=== PATIENT | male | born 1950 | race Caucasian/White ===

== ENCOUNTER 2017-10-01 09:58 | Outpatient (CLI) | payer MEDICARE, OTHER ==
--- NOTE | 2017-10-01 11:54 | CT ---
CT PULMONARY LUNG SCAN WITHOUT CONTRAST: HISTORY: Discontinued smoking (Z87.891). COMPARISON: None. FINDINGS: Lung screening specific (lung-RADS) is a 1.3 x 0.7 cm possible nodule in the posterior segment of the left upper lobe, abutting the left major pleura, with some thickening of the pleura. This nodule is a part-solid nodule. No other concerning nodule is present. Potentially Significant Incidentals (lung-RADS category S): None Pulmonary Incidentals: There are some essential lobular ground glass nodules in the upper lobe, sugg esting respiratory bronchiolitis. Other Incidentals: There is a calculus within the gallbladder. Moderate coronary artery calcificati ons. There is a midline superficial soft tissue nodule at the level of the manubrium, measuring 2.1 x 2 cm, likely a sebaceous cyst. No thoracic spine compression fracture. IMPRESSION: 1. Lung-RADS category 2 (benign appearance/behavior). There is a ground glass nodule in the left up per lobe, posterior segment, abutting the pleura, measuring less than 20 mm. The recommendation is t o continue annual low dose screening in 12 months. 2. Lung-RADS category S: Negative. No new or potentially significant incidental findings requiring urgent additional evaluation. 3. Other incidental findings as above. POS: TPC
== END 2017-10-01 09:59 | disposition home or self-care (01) ==
LOC: CT 09:58
PROVIDERS: ATTEND Internal Medicine
DX: Z87.891 Personal history of nicotine dependence (principal); R91.1 Solitary pulmonary nodule
CPT/HCPCS: G0297

== ENCOUNTER 2018-08-21 14:33 | Outpatient (CLI) | payer MEDICARE, OTHER ==
--- NOTE | 2018-08-21 18:40 | MRI ---
MRI THORACIC SPINE WITHOUT CONTRAST: 08/21/18 HISTORY: Back pain. M51.34 degenerative disease. COMPARISON: CT 10/01/17. FINDINGS: The cord signal is normal. No cord impingement of the thoracic spine. At the superior end plate of T9 is a hemangioma with a small superior end plate Schmorl's node throug h the hemangioma. This appears similar to the CT examination of 10/01/17. Modic type II end plate changes at T2-T3 with large anterior bridging osteophyte. At T4-T5, there is a right paracentral posterior disc protrusion causing minimal effacement of the ve ntral CSF space with spinal canal measuring approximately 8 mm. No significant neural foraminal narro wing. At T5-T6, there is a very low grade central and bilateral paracentral posterior disc osteophyte compl ex. Same is true at T6-T7. At T7-T8, three is a bridging posterior osteophyte disc osteophyte complex centrally with mild efface ment of the ventral CSF space with the spinal canal measuring 9 mm. Mild hypertrophic facet changes are present at T8-T9, T9-T10, T10-T11, T11-T12 bilaterally causing mi ld bilateral neural foraminal narrowing. The aortic contour is nonaneurysmal. No periaortic adenopathy. Paraspinal musculature is symmetric. IMPRESSION: Mild to moderate spondylosis as described above. POS: HOME
== END 2018-08-21 14:34 | disposition home or self-care (01) ==
LOC: SCSMRI 14:33
PROVIDERS: ATTEND Internal Medicine
DX: M51.34 Other intervertebral disc degeneration, thoracic region (principal); M47.814 Spondylosis without myelopathy or radiculopathy, thoracic region
CPT/HCPCS: 72146

== ENCOUNTER 2019-07-14 10:33 | Outpatient (CLI) | payer MEDICARE, OTHER ==
--- NOTE | 2019-07-14 13:22 | CT ---
CT PULMONARY LUNG SCAN: Date: 07/14/19 HISTORY: Current smoker of 50+ years. Follow-up examination; a ground-glass nodule was noted in the left upper lobe on previous exam. COMPARISON: 10/01/17 study. FINDINGS: The area of ground-glass nodularity abutting the upper portion of the major fissure on the left has a lmost completely resolved on this study. There are some changes of centrilobular emphysema noted. No new pulmonary nodules are identified. Coronary calcifications are seen. Incidental note is made of what appears to be a sebaceous cyst just directly anterior to the sternum. Visualized liver parenchyma is normal. IMPRESSION: 1. Lung-RADS Category 1 - Negative. The ground-glass nodule in the left upper lobe has resolved. 2. Lung-RADS Category S: Coronal calcifications are incidentally noted. POS: TPC
== END 2019-07-14 10:34 | disposition home or self-care (01) ==
LOC: CT 10:33
PROVIDERS: ATTEND Internal Medicine
DX: F17.213 Nicotine dependence, cigarettes, with withdrawal (principal); I25.10 Atherosclerotic heart disease of native coronary artery without angina pectoris
CPT/HCPCS: G0297

== ENCOUNTER 2020-07-22 11:02 | Outpatient (CLI) | payer MEDICARE, OTHER ==
--- NOTE | 2020-07-22 11:46 | CT ---
EXAM: CT chest without contrast PROVIDED CLINICAL HISTORY: Personal history of nicotine dependence, low dose screening COMPARISON: 07/14/2019 FINDINGS: The heart, pericardium and great vessels are suboptimally evaluated in the absence of IV contrast. Va scular calcification including coronary calcium is demonstrated. The airway appears patent and of normal caliber. There is no definite evidence for thoracic lymph node enlargement. 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 This is unchanged with respect to the 2018 study. The lungs are free of significant opacity. No pleural fluid or pneumothorax apparent. The visualized portions of the upper abdomen appear unremarkable. The osseous structures demonstrate no concerning lytic or blastic lesions. Sebaceous cyst involving the presternal subcutaneous adipose layer redemonstrated. IMPRESSION: Lung RADS category 1-negative. Continue annual screening.
== END 2020-07-22 11:03 | disposition home or self-care (01) ==
LOC: BICCT 11:02
PROVIDERS: ATTEND Internal Medicine
DX: Z12.2 Encounter for screening for malignant neoplasm of respiratory organs (principal); F17.210 Nicotine dependence, cigarettes, uncomplicated
CPT/HCPCS: G0297

== ENCOUNTER 2021-08-02 13:58 | Outpatient (CLI) | payer MEDICARE, OTHER | END 2021-08-02 13:59 | disposition home or self-care (01) | LOC: BICCT 13:58 | PROVIDERS: ATTEND Family Medicine | DX: Z12.2 Encounter for screening for malignant neoplasm of respiratory organs (principal); F17.210 Nicotine dependence, cigarettes, uncomplicated | CPT/HCPCS: 71271 ==

== ENCOUNTER 2022-05-09 15:26 | Outpatient (CLI) | payer MEDICARE, OTHER ==
[2022-05-09 16:48] LABS: Hemoglobin 14.9 g/dL (13.5-17.5); Mean Corpuscular HGB CONC 33.1 g/dL (32.0-36.0); Mean Corpuscular Volume 90.5 fl (81.2-95.1); Mean Platelet Volume 12.2 fl (7.4-10.4); Platelet Count 157 10x3/uL (150-450); RBC Distribution Width 13.4 % (11.5-14.5); Red Blood Cell (RBC) Count 4.97 10x6/uL (4.32-5.72); White Blood Cell (WBC) Count 7.4 10x3/uL (3.5-10.5)
[2022-05-09 16:54] LABS: Anion Gap 13 mmol/L (10-20); BUN (Urea Nitrogen) 24 mg/dL (8.4-25.7); Calc. Creatinine Clearance 0 mL/min (70-130); Calcium 9.8 mg/dL (7.8-10.44); Carbon Dioxide 29 mmol/L (23-31); Chloride 105 mmol/L (98-107); Estimated GFR 86; Glucose 139 mg/dL (83-110); Potassium 4.8 mmol/L (3.5-5.1); Sodium 142 mmol/L (136-145)
== END 2022-05-09 15:27 | disposition home or self-care (01) ==
LOC: LABBT 15:26
PROVIDERS: ATTEND Surgery
DX: Z01.818 Encounter for other preprocedural examination (principal); M54.16 Radiculopathy, lumbar region; M71.30 Other bursal cyst, unspecified site
CPT/HCPCS: 80048; 85027; 93005; 93010

== ENCOUNTER 2022-05-12 09:52 | Inpatient (IN) | payer MEDICARE, OTHER ==
[2022-05-10 12:35] VITALS: BMI 38.0
[2022-05-12 11:58] LABS: INR-International Normal Ratio 1.1; PTT 28.8 sec (22.9-36.1); Prothrombin Time 14.4 sec (12.0-14.7)
[2022-05-12] MEDS ORDERED: Neomycin-Polymyxin 1 ML AMP ONE (12:53)
[2022-05-12] MEDS ORDERED: Thrombin 5000 UNITS/5 ML VIAL ONE ×3 (12:53→14:14)
[2022-05-12] MEDS ORDERED: fentaNYL Citrate/PF 100 MCG/2 ML SYRINGE ONE (12:59)
[2022-05-12] MEDS ORDERED: CEFAZOLIN 2 GM VIAL ONE (13:01)
[2022-05-12] MEDS ORDERED: Sodium Chloride 0.9% 100 ML ONE (13:01)
[2022-05-12] MEDS ORDERED: PROPOFOL 200 MG/20 ML VIAL ONE (13:15)
[2022-05-12] MEDS ORDERED: Glycopyrrolate 0.2 MG/ML 5 ML SYRINGE ONE (13:15)
[2022-05-12] MEDS ORDERED: Ondansetron PF 4 MG/2 ML Vial ONE (13:15)
[2022-05-12] MEDS ORDERED: Rocuronium Bromide 10 MG/ML (10ML VIAL) ONE (13:15)
[2022-05-12] MEDS ORDERED: ePHEDrine 50 MG/ML VIAL ONE (13:15)
[2022-05-12] MEDS ORDERED: NEOSTIGMINE 3 MG/3 ML SYR 3 MG/3 ML SYRINGE ONE (13:15)
[2022-05-12] MEDS ORDERED: Dexamethasone 20 MG/5 ML VIAL ONE (13:15)
[2022-05-12] MEDS ORDERED: Lidocaine 1% MPF 2 ML VIAL ONE (13:15)
[2022-05-12] MEDS ORDERED: Promethazine HCl 25 MG/ML VIAL IVPB PRN (15:08)
[2022-05-12] MEDS ORDERED: Ondansetron HCl/PF 4 MG/2 ML Vial IVP PRN (15:08)
[2022-05-12] MEDS ORDERED: Promethazine HCl 25 MG/ML VIAL IM PRN (15:08)
[2022-05-12] MEDS ORDERED: Fentanyl 100 MCG/2 ML VIAL ONE (15:12)
[2022-05-12] MEDS ORDERED: Ondansetron PF 4 MG/2 ML Vial IVP PRN (15:13)
[2022-05-12] MEDS ORDERED: diphenhydrAMINE 25 MG CAP PO PRN (15:13)
[2022-05-12] MEDS ORDERED: Acetaminophen 325 MG TAB PO PRN (15:13)
[2022-05-12] MEDS ORDERED: Acetaminophen/Codeine 30-300mg Tablet PO PRN (15:13)
[2022-05-12] MEDS ORDERED: traMADol HCl 50 MG TAB PO PRN (15:13)
[2022-05-12] MEDS ORDERED: hydrALAZINE 20 MG/ML VIAL SLOW IVP PRN (15:16)
[2022-05-12] MEDS: Morphine 2 MG/ML VIAL SLOW IVP PRN ×2 (16:50→21:52)
[2022-05-12] MEDS: Sodium Chloride 0.9% 1,000 ML IV SCH (16:54)
[2022-05-12] MEDS: HYDROcodone/Acetaminophen 7.5/325 mg Tablet PO PRN (20:55)
[2022-05-12] MEDS: Carvedilol 6.25 MG TAB PO SCH (20:55)
[2022-05-12] MEDS: CEFAZOLIN 2 GM in Sodium Chloride 0.9% 100 ML IVPB SCH (20:59)
[2022-05-12] MEDS: tiZANidine HCl 4 MG TAB PO PRN (21:54)
[2022-05-13] MEDS: HYDROcodone/Acetaminophen 7.5/325 mg Tablet PO PRN ×3 (03:34→15:34)
[2022-05-13] MEDS: Sodium Chloride 0.9% 1,000 ML IV SCH ×2 (04:38→22:40)
[2022-05-13] MEDS ORDERED: Latanoprost 0.005% Ophth Soln 2.5 ml Bottle EA EYE SCH ×2 (09:00→21:00)
[2022-05-13] MEDS ORDERED: Amlodipine 5 mg/Benazepril 20 mg CAP PO SCH ×2 (09:00→21:00)
[2022-05-13] MEDS ORDERED: Atorvastatin Calcium 20 MG TAB PO SCH ×2 (09:00→21:00)
[2022-05-13] MEDS ORDERED: Doxazosin Mesylate 4 MG TAB PO SCH ×2 (09:00→21:00)
[2022-05-13] MEDS ORDERED: GLUCOSAMINE SULFATE 1000 MG PO SCH ×2 (09:00→21:00)
[2022-05-13] MEDS: Triamterene/Hydrochlorothiazide 37.5 mg/25 mg Tablet PO SCH (09:02)
[2022-05-13] MEDS: Carvedilol 6.25 MG TAB PO SCH ×2 (09:02→21:02)
[2022-05-13] MEDS: CEFAZOLIN 2 GM in Sodium Chloride 0.9% 100 ML IVPB SCH (15:34)
[2022-05-13] MEDS: tiZANidine HCl 4 MG TAB PO PRN (21:01)
[2022-05-13] MEDS: Morphine 2 MG/ML VIAL SLOW IVP PRN (21:11)
[2022-05-14] MEDS: HYDROcodone/Acetaminophen 7.5/325 mg Tablet PO PRN ×2 (01:26→13:24)
[2022-05-14 07:58] VITALS: TEMP 98.1
[2022-05-14] MEDS ORDERED: Dexamethasone 10 MG/ML VIAL SLOW IVP SCH (08:30)
[2022-05-14] MEDS ORDERED: Ketorolac Tromethamine 30 MG/ML VIAL IVP SCH (08:45)
[2022-05-14] MEDS: Sodium Chloride 0.9% 1,000 ML IV SCH (08:50)
[2022-05-14] MEDS: Carvedilol 6.25 MG TAB PO SCH (09:06)
[2022-05-14] MEDS: Triamterene/Hydrochlorothiazide 37.5 mg/25 mg Tablet PO SCH (09:06)
[2022-05-14 11:33] VITALS: BP 148/81
[2022-05-14] MEDS ORDERED: Dexamethasone 4 MG TAB PO SCH (12:00)
== END 2022-05-14 14:30 | disposition home or self-care (01) | DRG 517 ==
LOC: SDC 09:52 → SURG A 16:25 → OBSVTOIN 05-13 13:21
PROVIDERS: ADMIT Surgery; ATTEND Surgery
PROC: 01NB0ZZ Release Lumbar Nerve, Open Approach (ICD-10-PCS; principal; 2022-05-12)
DX: M48.062 Spinal stenosis, lumbar region with neurogenic claudication (principal); M54.16 Radiculopathy, lumbar region; M71.38 Other bursal cyst, other site; I25.10 Atherosclerotic heart disease of native coronary artery without angina pectoris; I10 Essential (primary) hypertension; E78.2 Mixed hyperlipidemia; Z28.21 Immunization not carried out because of patient refusal; Z98.890 Other specified postprocedural states; Z80.42 Family history of malignant neoplasm of prostate; Z80.3 Family history of malignant neoplasm of breast; Z79.899 Other long term (current) drug therapy; Z79.82 Long term (current) use of aspirin
CPT/HCPCS: 36415; 76000; 85610; 85730; 96365; 96375; 96376; C1776; G0378; J0690; J1100; J1885; J2270; J2405; J2704; J3010; J3370; J3490; J7050; J8540

== ENCOUNTER 2022-07-20 07:08 | Inpatient (IN) | payer MEDICARE, OTHER ==
[2022-07-20 08:18] LABS: #Basophils 0.1 thou/uL (0.0-0.2); #Eosinphils 0.4 thou/uL (0.0-0.7); #Lymphocytes 2.1 thou/uL (1.20-3.40); #Monocytes 0.7 thou/uL (0.11-0.59); %Basophils 0.7 % (0.0-1.0); %Eosinophils 5.4 % (0.0-10.0); %Lymphocytes 28.9 % (21.0-51.0); %Monocytes 9.3 % (0.0-10.0); %Neutrophils 55.6 % (42.0-75.0); Hemoglobin 14.6 g/dL (14.0-18.0); Mean Corpuscular HGB CONC 32.4 g/dL (32.0-36.0); Mean Corpuscular Hemoglobin 30.7 pg (27.0-31.0); Mean Corpuscular Volume 94.8 fl (78.0-98.0); Mean Platelet Volume 9.1 fL (7.4-10.4); Platelet Count 161 10x3/uL (130-400); RBC Distribution Width 12.8 % (11.5-14.5); Red Blood Cell (RBC) Count 4.77 mill/uL (4.70-6.10); White Blood Cell (WBC) Count 7.2 10x3/uL (4.8-10.8)
[2022-07-20 08:40] LABS: ALT (SGPT) 22 U/L (8-55); AST (SGOT) 14 U/L (5-34); Albumin 3.8 g/dL (3.4-4.8); Alkaline Phosphatase 83 U/L (40-110); Anion Gap 13 mmol/L (10-20); BUN (Urea Nitrogen) 19 mg/dL (8.4-25.7); Bilirubin, Total 0.9 mg/dL (0.2-1.2); CK (CPK) 109 U/L (30-200); CRP (Inflammatory) Less than 0.50 mg/dL (= or < 0.5); Calc. Creatinine Clearance 0 mL/min (70-130); Calcium 9.4 mg/dL (7.8-10.44); Carbon Dioxide 27 mmol/L (23-31); Chloride 104 mmol/L (98-107); Estimated GFR 94; Globulin 2.9 g/dL (2.4-3.5); Glucose 113 mg/dL (83-110); Potassium 3.2 mmol/L (3.5-5.1); Protein, Total 6.7 g/dL (5.8-8.1); Sodium 141 mmol/L (136-145)
[2022-07-20] MEDS ORDERED: Potassium Chloride 20 MEQ TAB PO SCH (11:00)
[2022-07-20] MEDS ORDERED: Iopamidol 370 76% 50 ML VIAL FS ONE (11:17)
[2022-07-20] MEDS ORDERED: FLU VACC QS2022-23(65YR UP)/PF 240 MCG/0.7 ML SYRINGE IM ONE (11:45)
[2022-07-20] MEDS ORDERED: Heparin 10,000 UNITS/ 10 ML VIAL ONE (13:07)
[2022-07-20] MEDS ORDERED: Lidocaine 1% (PF) 30 ML VIAL ONE (13:08)
[2022-07-20] MEDS ORDERED: HYDROcodone/Acetaminophen 7.5/325 mg Tablet PO PRN (19:01)
[2022-07-20] MEDS ORDERED: Acetaminophen/Codeine 30-300mg Tablet PO PRN (19:01)
[2022-07-20] MEDS ORDERED: diphenhydrAMINE 25 MG CAP PO PRN (19:01)
[2022-07-20] MEDS ORDERED: Ondansetron PF 4 MG/2 ML Vial IVP PRN (19:01)
[2022-07-20] MEDS ORDERED: Acetaminophen 325 MG TAB PO PRN (19:01)
[2022-07-20] MEDS ORDERED: traMADol HCl 50 MG TAB PO PRN (19:01)
[2022-07-20] MEDS ORDERED: Polyethylene Glycol 3350 17 GM Packet PO PRN (19:03)
[2022-07-20] MEDS ORDERED: tiZANidine HCl 4 MG TAB PO PRN (19:03)
[2022-07-20] MEDS ORDERED: Bisacodyl 5 MG TAB PO PRN (19:03)
[2022-07-20] MEDS ORDERED: Morphine 4 MG/ML VIAL SLOW IVP PRN (19:34)
[2022-07-20] MEDS: Docusate 100 MG CAP PO SCH (20:55)
[2022-07-20] MEDS: Doxazosin Mesylate 4 MG TAB PO SCH (20:55)
[2022-07-20] MEDS: Atorvastatin Calcium 10 MG TAB PO SCH (20:56)
[2022-07-20] MEDS: Carvedilol 6.25 MG TAB PO SCH (20:56)
[2022-07-20] MEDS: Latanoprost 0.005% Ophth Soln 2.5 ml Bottle EA EYE SCH (20:56)
[2022-07-20] MEDS ORDERED: GLUCOSAMINE SULFATE 1000 MG PO SCH (21:00)
[2022-07-20] MEDS ORDERED: Fish Oil 1,000 MG CAP PO SCH (21:00)
[2022-07-21 06:27] LABS: #Eosinphils 0.3 thou/uL (0.0-0.7); #Lymphocytes 2.2 thou/uL (1.20-3.40); #Monocytes 0.8 thou/uL (0.11-0.59); #Neutrophils 5.1 thou/uL (1.40-6.50); %Basophils 0.3 % (0.0-1.0); %Eosinophils 3.4 % (0.0-10.0); %Lymphocytes 25.9 % (21.0-51.0); %Monocytes 9.2 % (0.0-10.0); %Neutrophils 61.2 % (42.0-75.0); Hemoglobin 14.3 g/dL (14.0-18.0); Mean Corpuscular HGB CONC 32.7 g/dL (32.0-36.0); Mean Corpuscular Hemoglobin 30.7 pg (27.0-31.0); Mean Corpuscular Volume 93.9 fl (78.0-98.0); Platelet Count 158 10x3/uL (130-400); RBC Distribution Width 12.6 % (11.5-14.5); Red Blood Cell (RBC) Count 4.67 mill/uL (4.70-6.10); White Blood Cell (WBC) Count 8.4 10x3/uL (4.8-10.8)
[2022-07-21 06:33] LABS: INR-International Normal Ratio 1.1; Prothrombin Time 14.8 sec (12.0-14.7)
[2022-07-21 06:50] LABS: Anion Gap 11 mmol/L (10-20); BUN (Urea Nitrogen) 17 mg/dL (8.4-25.7); Calc. Creatinine Clearance 144 mL/min (70-130); Calcium 9.2 mg/dL (7.8-10.44); Carbon Dioxide 25 mmol/L (23-31); Chloride 106 mmol/L (98-107); Estimated GFR 94; Glucose 103 mg/dL (83-110); Potassium 3.7 mmol/L (3.5-5.1); Sodium 138 mmol/L (136-145)
[2022-07-21] MEDS: Amlodipine 5 MG TAB PO SCH (07:45)
[2022-07-21] MEDS: Triamterene/Hydrochlorothiazide 37.5 mg/25 mg Tablet PO SCH (07:45)
[2022-07-21] MEDS: Lisinopril 20 MG TAB PO SCH (07:46)
[2022-07-21] MEDS: Carvedilol 6.25 MG TAB PO SCH ×2 (07:46→20:53)
[2022-07-21] MEDS: Loratadine 10 MG TAB PO SCH (07:48)
[2022-07-21] MEDS: Docusate 100 MG CAP PO SCH ×2 (07:49→20:52)
[2022-07-21] MEDS ORDERED: Apixaban 5 MG TAB PO SCH (09:00)
[2022-07-21] MEDS ORDERED: hydrALAZINE 20 MG/ML VIAL SLOW IVP PRN (10:41)
[2022-07-21] MEDS ORDERED: Thrombin 5000 UNITS/5 ML VIAL ONE (10:44)
[2022-07-21] MEDS ORDERED: CEFAZOLIN 2 GM in Sodium Chloride 0.9% 100 ML IVPB SCH (10:45)
[2022-07-21] MEDS ORDERED: CEFAZOLIN 2 GM VIAL ONE (10:47)
[2022-07-21] MEDS ORDERED: Sodium Chloride 0.9% 100 ML ONE (10:47)
[2022-07-21] MEDS ORDERED: fentaNYL PF 100 MCG/2 ML SYRINGE ONE ×2 (10:52→12:57)
[2022-07-21] MEDS ORDERED: SUGAMMADEX SODIUM 200 MG/2 ML VIAL ONE (10:52)
[2022-07-21] MEDS ORDERED: Ketorolac Tromethamine 30 MG/ML VIAL ONE (10:57)
[2022-07-21] MEDS ORDERED: PROPOFOL 200 MG/20 ML VIAL ONE (10:57)
[2022-07-21] MEDS ORDERED: Rocuronium Bromide 10 MG/ML (10ML VIAL) ONE (10:57)
[2022-07-21] MEDS ORDERED: Dexamethasone 20 MG/5 ML VIAL ONE (10:57)
[2022-07-21] MEDS ORDERED: NEOSTIGMINE 3 MG/3 ML SYR 3 MG/3 ML SYRINGE ONE (10:57)
[2022-07-21] MEDS ORDERED: ePHEDrine 50 MG/ML VIAL ONE (10:57)
[2022-07-21] MEDS ORDERED: Glycopyrrolate 0.2 MG/ML 5 ML SYRINGE ONE (10:57)
[2022-07-21] MEDS ORDERED: Ondansetron PF 4 MG/2 ML Vial ONE (10:57)
[2022-07-21] MEDS ORDERED: Dexamethasone 4 mg/ml Vial ONE (11:54)
[2022-07-21] MEDS ORDERED: Morphine Sulfate 2 MG/ML SYRINGE SLOW IVP PRN (12:45)
[2022-07-21] MEDS ORDERED: PACU-Morphine 4MG/ML VIAL SLOW IVP PRN (12:45)
[2022-07-21] MEDS ORDERED: Promethazine HCl 25 MG/ML VIAL IM PRN (12:45)
[2022-07-21] MEDS ORDERED: HYDROmorphone 2 MG/ML VIAL SLOW IVP PRN (12:45)
[2022-07-21] MEDS ORDERED: Promethazine HCl 25 MG/ML VIAL IVPB PRN (12:45)
[2022-07-21] MEDS ORDERED: FENTANYL 50 MCG/ML 1 ML VIAL SLOW IVP PRN (12:45)
[2022-07-21] MEDS ORDERED: Ondansetron HCl/PF 4 MG/2 ML Vial IVP PRN (12:45)
[2022-07-21] MEDS: CEFAZOLIN 2 GM in Sodium Chloride 0.9% 100 ML IVPB SCH (18:53)
[2022-07-21] MEDS: Atorvastatin Calcium 10 MG TAB PO SCH (20:53)
[2022-07-21] MEDS: Doxazosin Mesylate 4 MG TAB PO SCH (20:54)
[2022-07-21] MEDS: Latanoprost 0.005% Ophth Soln 2.5 ml Bottle EA EYE SCH (21:55)
[2022-07-22] MEDS: CEFAZOLIN 2 GM in Sodium Chloride 0.9% 100 ML IVPB SCH ×3 (02:14→17:52)
[2022-07-22 04:27] LABS: #Monocytes 0.3 thou/uL (0.11-0.59); #Neutrophils 8.4 thou/uL (1.40-6.50); %Eosinophils 0.1 % (0.0-10.0); %Lymphocytes 10.4 % (21.0-51.0); %Monocytes 3.1 % (0.0-10.0); %Neutrophils 86.4 % (42.0-75.0); Hemoglobin 15.7 g/dL (14.0-18.0); Mean Corpuscular HGB CONC 32.2 g/dL (32.0-36.0); Mean Corpuscular Hemoglobin 30.1 pg (27.0-31.0); Mean Corpuscular Volume 93.5 fl (78.0-98.0); Mean Platelet Volume 9.4 fL (7.4-10.4); Platelet Count 166 10x3/uL (130-400); RBC Distribution Width 12.4 % (11.5-14.5); Red Blood Cell (RBC) Count 5.23 mill/uL (4.70-6.10); White Blood Cell (WBC) Count 9.8 10x3/uL (4.8-10.8)
[2022-07-22 04:30] LABS: Anion Gap 12 mmol/L (10-20); BUN (Urea Nitrogen) 19 mg/dL (8.4-25.7); Calc. Creatinine Clearance 140 mL/min (70-130); Calcium 9.3 mg/dL (7.8-10.44); Carbon Dioxide 26 mmol/L (23-31); Chloride 101 mmol/L (98-107); Estimated GFR 94; Glucose 169 mg/dL (83-110); Potassium 3.6 mmol/L (3.5-5.1); Sodium 135 mmol/L (136-145)
[2022-07-22] MEDS: Bisacodyl 5 MG TAB PO SCH (08:14)
[2022-07-22] MEDS: Docusate 100 MG CAP PO SCH ×2 (08:14→21:03)
[2022-07-22] MEDS: Carvedilol 6.25 MG TAB PO SCH ×2 (08:15→21:00)
[2022-07-22] MEDS: Loratadine 10 MG TAB PO SCH (08:15)
[2022-07-22] MEDS: Amlodipine 5 MG TAB PO SCH (08:16)
[2022-07-22] MEDS: Lisinopril 20 MG TAB PO SCH (08:16)
[2022-07-22] MEDS: Triamterene/Hydrochlorothiazide 37.5 mg/25 mg Tablet PO SCH (10:01)
[2022-07-22] MEDS: Atorvastatin Calcium 10 MG TAB PO SCH (21:03)
[2022-07-22] MEDS: Doxazosin Mesylate 4 MG TAB PO SCH (21:03)
[2022-07-22] MEDS: Latanoprost 0.005% Ophth Soln 2.5 ml Bottle EA EYE SCH (21:06)
[2022-07-23] MEDS: CEFAZOLIN 2 GM in Sodium Chloride 0.9% 100 ML IVPB SCH ×3 (01:49→18:19)
[2022-07-23 04:13] LABS: #Eosinphils 0.2 thou/uL (0.0-0.7); #Lymphocytes 2.3 thou/uL (1.20-3.40); #Neutrophils 9.6 thou/uL (1.40-6.50); %Basophils 0.1 % (0.0-1.0); %Eosinophils 1.5 % (0.0-10.0); %Lymphocytes 17.5 % (21.0-51.0); %Monocytes 7.4 % (0.0-10.0); %Neutrophils 73.4 % (42.0-75.0); Hemoglobin 14.2 g/dL (14.0-18.0); Mean Corpuscular HGB CONC 32.8 g/dL (32.0-36.0); Mean Corpuscular Volume 94.5 fl (78.0-98.0); Mean Platelet Volume 9.3 fL (7.4-10.4); Platelet Count 161 10x3/uL (130-400); RBC Distribution Width 12.6 % (11.5-14.5); Red Blood Cell (RBC) Count 4.57 mill/uL (4.70-6.10)
[2022-07-23 04:36] LABS: Anion Gap 13 mmol/L (10-20); BUN (Urea Nitrogen) 26 mg/dL (8.4-25.7); Calc. Creatinine Clearance 125 mL/min (70-130); Calcium 8.9 mg/dL (7.8-10.44); Carbon Dioxide 26 mmol/L (23-31); Chloride 102 mmol/L (98-107); Estimated GFR 90; Glucose 123 mg/dL (83-110); Potassium 3.5 mmol/L (3.5-5.1); Sodium 137 mmol/L (136-145)
[2022-07-23] MEDS: Carvedilol 6.25 MG TAB PO SCH ×2 (09:29→20:49)
[2022-07-23] MEDS: Docusate 100 MG CAP PO SCH ×2 (09:29→20:49)
[2022-07-23] MEDS: Amlodipine 5 MG TAB PO SCH (09:29)
[2022-07-23] MEDS: Bisacodyl 5 MG TAB PO SCH (09:29)
[2022-07-23] MEDS: Lisinopril 20 MG TAB PO SCH (09:30)
[2022-07-23] MEDS: Loratadine 10 MG TAB PO SCH (09:30)
[2022-07-23] MEDS: Triamterene/Hydrochlorothiazide 37.5 mg/25 mg Tablet PO SCH (10:28)
[2022-07-23] MEDS: Doxazosin Mesylate 4 MG TAB PO SCH (20:49)
[2022-07-23] MEDS: Atorvastatin Calcium 10 MG TAB PO SCH (20:49)
[2022-07-23] MEDS: Latanoprost 0.005% Ophth Soln 2.5 ml Bottle EA EYE SCH (20:50)
[2022-07-24] MEDS: CEFAZOLIN 2 GM in Sodium Chloride 0.9% 100 ML IVPB SCH ×3 (01:06→17:50)
[2022-07-24 04:20] LABS: #Eosinphils 0.5 thou/uL (0.0-0.7); #Lymphocytes 2.7 thou/uL (1.20-3.40); #Monocytes 1.2 thou/uL (0.11-0.59); #Neutrophils 5.5 thou/uL (1.40-6.50); %Basophils 0.2 % (0.0-1.0); %Eosinophils 5.5 % (0.0-10.0); %Lymphocytes 27.4 % (21.0-51.0); %Monocytes 11.7 % (0.0-10.0); %Neutrophils 55.2 % (42.0-75.0); Hemoglobin 13.7 g/dL (14.0-18.0); Mean Corpuscular HGB CONC 32.4 g/dL (32.0-36.0); Mean Corpuscular Hemoglobin 30.5 pg (27.0-31.0); Mean Platelet Volume 9.4 fL (7.4-10.4); Platelet Count 166 10x3/uL (130-400); RBC Distribution Width 12.7 % (11.5-14.5); White Blood Cell (WBC) Count 9.9 10x3/uL (4.8-10.8)
[2022-07-24 04:40] LABS: Anion Gap 11 mmol/L (10-20); BUN (Urea Nitrogen) 20 mg/dL (8.4-25.7); Calc. Creatinine Clearance 134 mL/min (70-130); Calcium 8.9 mg/dL (7.8-10.44); Carbon Dioxide 27 mmol/L (23-31); Chloride 104 mmol/L (98-107); Estimated GFR 92; Glucose 98 mg/dL (83-110); Potassium 3.8 mmol/L (3.5-5.1); Sodium 138 mmol/L (136-145)
[2022-07-24] MEDS: Bisacodyl 5 MG TAB PO SCH (09:14)
[2022-07-24] MEDS: Amlodipine 5 MG TAB PO SCH (09:15)
[2022-07-24] MEDS: Docusate 100 MG CAP PO SCH ×2 (09:15→21:39)
[2022-07-24] MEDS: Loratadine 10 MG TAB PO SCH (09:15)
[2022-07-24] MEDS: Lisinopril 20 MG TAB PO SCH (09:15)
[2022-07-24] MEDS: Carvedilol 6.25 MG TAB PO SCH ×2 (09:15→21:39)
[2022-07-24] MEDS: Metamucil PACK PO SCH (09:16)
[2022-07-24] MEDS: Triamterene/Hydrochlorothiazide 37.5 mg/25 mg Tablet PO SCH (09:19)
[2022-07-24 18:25] VITALS: BMI 38.5
[2022-07-24] MEDS: Atorvastatin Calcium 10 MG TAB PO SCH (21:39)
[2022-07-24] MEDS: Doxazosin Mesylate 4 MG TAB PO SCH (21:39)
[2022-07-24 21:40] VITALS: BP 154/86
[2022-07-24] MEDS: Latanoprost 0.005% Ophth Soln 2.5 ml Bottle EA EYE SCH (21:40)
[2022-07-25] MEDS: CEFAZOLIN 2 GM in Sodium Chloride 0.9% 100 ML IVPB SCH ×2 (01:55→09:10)
[2022-07-25] MEDS ORDERED: Lidocaine 1% w/Epinephrine 1:100K 20 ML VIAL IJ SCH (06:15)
[2022-07-25 06:43] LABS: #Eosinphils 0.5 thou/uL (0.0-0.7); #Lymphocytes 2.6 thou/uL (1.20-3.40); #Neutrophils 4.7 thou/uL (1.40-6.50); %Basophils 0.4 % (0.0-1.0); %Eosinophils 5.5 % (0.0-10.0); %Lymphocytes 29.7 % (21.0-51.0); %Monocytes 11.1 % (0.0-10.0); %Neutrophils 53.3 % (42.0-75.0); Mean Corpuscular HGB CONC 32.5 g/dL (32.0-36.0); Mean Corpuscular Hemoglobin 31.2 pg (27.0-31.0); Mean Platelet Volume 9.3 fL (7.4-10.4); Platelet Count 166 10x3/uL (130-400); RBC Distribution Width 12.8 % (11.5-14.5); White Blood Cell (WBC) Count 8.8 10x3/uL (4.8-10.8)
[2022-07-25 06:59] LABS: Anion Gap 9 mmol/L (10-20); BUN (Urea Nitrogen) 21 mg/dL (8.4-25.7); Calc. Creatinine Clearance 142 mL/min (70-130); Calcium 9.2 mg/dL (7.8-10.44); Carbon Dioxide 29 mmol/L (23-31); Chloride 102 mmol/L (98-107); Estimated GFR 94; Glucose 100 mg/dL (83-110); Potassium 3.4 mmol/L (3.5-5.1); Sodium 137 mmol/L (136-145)
[2022-07-25] MEDS: Bisacodyl 5 MG TAB PO SCH (09:10)
[2022-07-25] MEDS: Docusate 100 MG CAP PO SCH (09:10)
[2022-07-25] MEDS: Loratadine 10 MG TAB PO SCH (09:12)
[2022-07-25] MEDS: Metamucil PACK PO SCH (09:12)
[2022-07-25] MEDS: Carvedilol 6.25 MG TAB PO SCH (10:32)
[2022-07-25] MEDS: Amlodipine 5 MG TAB PO SCH (10:33)
[2022-07-25] MEDS: Lisinopril 20 MG TAB PO SCH (10:33)
[2022-07-25] MEDS: Triamterene/Hydrochlorothiazide 37.5 mg/25 mg Tablet PO SCH (10:33)
[2022-07-25 12:29] VITALS: TEMP 98.3
== END 2022-07-25 15:30 | disposition home or self-care (01) | DRG 29 ==
LOC: ERS 07:08 → T4-B 11:08 → OBSVTOIN 07-21 10:28 → CCU 07-21 11:42
PROVIDERS: ADMIT Family Medicine; ATTEND Family Medicine
PROC: 06H03DZ Insertion of Intraluminal Device into Inferior Vena Cava, Percutaneous Approach (ICD-10-PCS; 2022-07-20)
PROC: B5191ZZ Fluoroscopy of Inferior Vena Cava using Low Osmolar Contrast (ICD-10-PCS; 2022-07-20)
PROC: 00UT0KZ Supplement Spinal Meninges with Nonautologous Tissue Substitute, Open Approach (ICD-10-PCS; principal; 2022-07-21)
PROC: 009U00Z Drainage of Spinal Canal with Drainage Device, Open Approach (ICD-10-PCS; 2022-07-21)
DX: G97.82 Other postprocedural complications and disorders of nervous system (principal); Z20.822 Contact with and (suspected) exposure to COVID-19; G96.09 Other spinal cerebrospinal fluid leak; I82.411 Acute embolism and thrombosis of right femoral vein; G96.198 Other disorders of meninges, not elsewhere classified; Y83.8 Other surgical procedures as the cause of abnormal reaction of the patient, or of later complication, without mention of misadventure at the time of the procedure; E78.5 Hyperlipidemia, unspecified; I10 Essential (primary) hypertension; K21.9 Gastro-esophageal reflux disease without esophagitis; H40.9 Unspecified glaucoma; H35.30 Unspecified macular degeneration; E87.6 Hypokalemia; Z98.52 Vasectomy status; Z98.49 Cataract extraction status, unspecified eye; Z98.890 Other specified postprocedural states; Z87.891 Personal history of nicotine dependence
CPT/HCPCS: 36415; 37191; 72148; 80048; 80053; 82550; 85025; 85610; 85652; 85730; 86140; 93970; C1769; C1776; C1880; G0378; J0360; J1100; J1644; J1885; J2001; J2405; J2704; J3370; J3490; Q9967; U0003; U0005

== ENCOUNTER 2022-08-29 05:36 | Day surgery (SDC) | payer MEDICARE, OTHER ==
[2022-08-24 13:52] VITALS: BMI 36.6
[2022-08-29] MEDS ORDERED: Lidocaine 1% PF 5 ML VIAL ONE ×2 (06:33→06:34)
[2022-08-29] MEDS ORDERED: Iopamidol 370 76% 50 ML VIAL FS ONE (12:43)
== END 2022-08-29 09:45 | disposition home or self-care (01) ==
LOC: SDC 05:36
PROVIDERS: ATTEND Thoracic Surgery (Cardiothoracic Vascular Surgery)
PROC: 06PY3DZ Removal of Intraluminal Device from Lower Vein, Percutaneous Approach (ICD-10-PCS; principal; 2022-08-29)
DX: Z45.89 Encounter for adjustment and management of other implanted devices (principal); K21.9 Gastro-esophageal reflux disease without esophagitis; I10 Essential (primary) hypertension; E78.5 Hyperlipidemia, unspecified; E66.9 Obesity, unspecified; Z68.36 Body mass index [BMI] 36.0-36.9, adult; Z86.718 Personal history of other venous thrombosis and embolism; Z79.01 Long term (current) use of anticoagulants; Z79.899 Other long term (current) drug therapy
CPT/HCPCS: C1758; C1769 ×2; C1894; 37193

== ENCOUNTER 2022-11-16 08:22 | Outpatient (CLI) | payer MEDICARE, OTHER | END 2022-11-16 08:23 | disposition home or self-care (01) | LOC: TBSIIMAG 08:22 | PROVIDERS: ATTEND Surgery | DX: M54.2 Cervicalgia (principal); R51.9 Headache, unspecified; M54.50 Low back pain, unspecified; M79.605 Pain in left leg; J34.1 Cyst and mucocele of nose and nasal sinus | CPT/HCPCS: 70553; 72158 ==

== ENCOUNTER 2022-12-28 09:00 | Inpatient (IN) | payer MEDICARE, OTHER ==
[2023-01-02] MEDS ORDERED: Bupivacaine/Epinephrine 0.25% 30 ML VIAL ONE (06:31)
[2023-01-02] MEDS ORDERED: Vancomycin 500 MG VIAL (PEDI) ONE (06:31)
[2023-01-02] MEDS ORDERED: Fentanyl 250 MCG/5 ML VIAL ONE ×2 (06:56→08:59)
[2023-01-02] MEDS ORDERED: SUGAMMADEX SODIUM 200 MG/2 ML VIAL ONE (06:56)
[2023-01-02] MEDS ORDERED: Lidocaine 1% (PF) 30 ML VIAL ONE (07:18)
[2023-01-02] MEDS ORDERED: EPINEPHrine 1 MG/ML AMP ONE (07:18)
[2023-01-02] MEDS ORDERED: Sodium Chloride 0.9% 100 ML ONE ×2 (07:27→14:47)
[2023-01-02] MEDS ORDERED: CEFAZOLIN 2 GM VIAL ONE ×2 (07:27→14:41)
[2023-01-02] MEDS ORDERED: Phenylephrine 10 MG/ML VIAL ONE (07:33)
[2023-01-02] MEDS ORDERED: Ondansetron PF 4 MG/2 ML Vial ONE (07:39)
[2023-01-02] MEDS ORDERED: Glycopyrrolate 0.2 MG/ML 5 ML SYRINGE ONE (07:39)
[2023-01-02] MEDS ORDERED: PROPOFOL 200 MG/20 ML VIAL ONE (07:39)
[2023-01-02] MEDS ORDERED: Dexamethasone 20 MG/5 ML VIAL ONE (07:39)
[2023-01-02] MEDS ORDERED: Rocuronium Bromide 10 MG/ML (10ML VIAL) ONE (07:39)
[2023-01-02] MEDS ORDERED: NEOSTIGMINE 3 MG/3 ML SYR 3 MG/3 ML SYRINGE ONE (07:39)
[2023-01-02] MEDS ORDERED: Promethazine HCl 25 MG/ML VIAL IVPB PRN (09:20)
[2023-01-02] MEDS ORDERED: Docusate 100 MG CAP PO PRN (09:20)
[2023-01-02] MEDS ORDERED: HYDROmorphone 0.5 MG/0.5 ML SYRINGE ONE (09:24)
[2023-01-02] MEDS ORDERED: Polyethylene Glycol 3350 17 GM Packet PO PRN (09:28)
[2023-01-02] MEDS: Sodium Chloride 0.9% 1,000 ML IV SCH ×2 (09:30→15:32)
[2023-01-02] MEDS ORDERED: hydrALAZINE 20 MG/ML VIAL ONE (09:34)
[2023-01-02] MEDS ORDERED: Promethazine HCl 12.5 MG in Sodium Chloride 0.9% 50 ML IVPB PRN (09:36)
[2023-01-02] MEDS ORDERED: Morphine 4 MG/ML VIAL ONE (10:16)
[2023-01-02] MEDS ORDERED: Morphine 2 MG/ML VIAL ONE (13:49)
[2023-01-02] MEDS: CEFAZOLIN 2 GM in Sodium Chloride 0.9% 100 ML IVPB SCH ×2 (15:01→21:00)
[2023-01-02] MEDS: Acetaminophen/Codeine 30-300mg Tablet PO PRN (15:25)
[2023-01-02 15:37] VITALS: BMI 39.6
[2023-01-02] MEDS: hydrALAZINE 20 MG/ML VIAL SLOW IVP PRN ×4 (16:49→19:52)
[2023-01-02] MEDS: Morphine 2 MG/ML VIAL SLOW IVP PRN (17:04)
[2023-01-02] MEDS: Ondansetron PF 4 MG/2 ML Vial IVP PRN (19:52)
[2023-01-02] MEDS: Doxazosin Mesylate 4 MG TAB PO SCH (19:53)
[2023-01-02] MEDS: HYDROcodone/Acetaminophen 7.5/325 mg Tablet PO PRN (19:53)
[2023-01-02] MEDS: Atorvastatin Calcium 10 MG TAB PO SCH (19:53)
[2023-01-02] MEDS: Carvedilol 25 MG TAB PO SCH (19:54)
[2023-01-02] MEDS: Latanoprost 0.005% Ophth Soln 2.5 ml Bottle EA EYE SCH (20:44)
[2023-01-03] MEDS: HYDROcodone/Acetaminophen 7.5/325 mg Tablet PO PRN ×2 (00:53→08:03)
[2023-01-03] MEDS: Morphine 2 MG/ML VIAL SLOW IVP PRN (03:17)
[2023-01-03] MEDS: Ondansetron PF 4 MG/2 ML Vial IVP PRN ×2 (03:18→14:27)
[2023-01-03] MEDS: hydrALAZINE 20 MG/ML VIAL SLOW IVP PRN (05:41)
[2023-01-03] MEDS: Carvedilol 25 MG TAB PO SCH ×2 (08:01→19:55)
[2023-01-03] MEDS: Loratadine 10 MG TAB PO SCH (08:02)
[2023-01-03] MEDS: Lisinopril 20 MG TAB PO SCH (08:02)
[2023-01-03 08:29] LABS: #Basophils 0.1 thou/uL (0.0-0.2); #Lymphocytes 0.5 thou/uL (1.20-3.40); #Monocytes 0.4 thou/uL (0.11-0.59); #Neutrophils 9.3 thou/uL (1.40-6.50); %Basophils 0.3 % (0.0-1.0); %Eosinophils 0.3 % (0.0-10.0); %Lymphocytes 7.5 % (21.0-51.0); %Monocytes 6.5 % (0.0-10.0); %Neutrophils 85.4 % (42.0-75.0); Hemoglobin 15.4 g/dL (14.0-18.0); MDiff Complete? YES; Mean Corpuscular HGB CONC 32.9 g/dL (32.0-36.0); Mean Corpuscular Hemoglobin 30.7 pg (27.0-31.0); Mean Corpuscular Volume 93.1 fl (78.0-98.0); Mean Platelet Volume 12.1 fL (7.4-10.4); Platelet Count 47 10x3/uL (130-400); RBC Distribution Width 11.8 % (11.5-14.5); Red Blood Cell (RBC) Count 5.03 mill/uL (4.70-6.10); White Blood Cell (WBC) Count 10.8 10x3/uL (4.8-10.8)
[2023-01-03 08:30] LABS: Band 3 % (5-11); Lymphocytes 6 % (21-51); Monocytes 9 % (0-10); Neutrophil 82 % (42-75); Platelet Morphology Comment Appears Decreased; Polychromasia SLIGHT = 2-3 cells (100X) (0-2/hpf)
[2023-01-03] MEDS: Triamterene/Hydrochlorothiazide 37.5 mg/25 mg Tablet PO SCH (09:54)
[2023-01-03] MEDS: Scopolamine 1.5 mg/72 hour Patch TD SCH (09:59)
[2023-01-03 12:48] LABS: Anion Gap 14 mmol/L (10-20); BUN (Urea Nitrogen) 20 mg/dL (8.4-25.7); Calc. Creatinine Clearance 139 mL/min (70-130); Carbon Dioxide 23 mmol/L (23-31); Chloride 109 mmol/L (98-107); Estimated GFR 92; Glucose 135 mg/dL (83-110); Potassium 3.1 mmol/L (3.5-5.1); Sodium 143 mmol/L (136-145)
[2023-01-03] MEDS: Sodium Chloride 0.9% 1,000 ML IV SCH ×2 (13:33→19:55)
[2023-01-03] MEDS: Acetaminophen/Codeine 30-300mg Tablet PO PRN (14:25)
[2023-01-03 15:55] LABS: Platelet Count 143 10x3/uL (130-400)
[2023-01-03] MEDS: Acetaminophen 325 MG TAB PO PRN (19:40)
[2023-01-03] MEDS: Atorvastatin Calcium 10 MG TAB PO SCH (19:55)
[2023-01-03] MEDS: Doxazosin Mesylate 4 MG TAB PO SCH (19:55)
[2023-01-03] MEDS: Latanoprost 0.005% Ophth Soln 2.5 ml Bottle EA EYE SCH (21:00)
[2023-01-03] MEDS ORDERED: Sevoflurane 250 ML INH ANEST BOTTLE ONE (22:41)
[2023-01-04] MEDS: hydrALAZINE 20 MG/ML VIAL SLOW IVP PRN ×3 (01:11→19:19)
[2023-01-04 07:31] LABS: #Eosinphils 0.1 thou/uL (0.0-0.7); #Lymphocytes 1.5 thou/uL (1.20-3.40); #Neutrophils 9.9 thou/uL (1.40-6.50); %Basophils 0.3 % (0.0-1.0); %Eosinophils 0.5 % (0.0-10.0); %Lymphocytes 12.3 % (21.0-51.0); %Monocytes 7.7 % (0.0-10.0); %Neutrophils 79.1 % (42.0-75.0); Hemoglobin 13.9 g/dL (14.0-18.0); Mean Corpuscular HGB CONC 33.4 g/dL (32.0-36.0); Mean Corpuscular Hemoglobin 31.5 pg (27.0-31.0); Mean Corpuscular Volume 94.1 fl (78.0-98.0); Mean Platelet Volume 10.4 fL (7.4-10.4); Platelet Count 130 10x3/uL (130-400); RBC Distribution Width 11.8 % (11.5-14.5); Red Blood Cell (RBC) Count 4.42 mill/uL (4.70-6.10); White Blood Cell (WBC) Count 12.5 10x3/uL (4.8-10.8)
[2023-01-04 07:35] LABS: Anion Gap 11 mmol/L (10-20); BUN (Urea Nitrogen) 27 mg/dL (8.4-25.7); Calc. Creatinine Clearance 127 mL/min (70-130); Carbon Dioxide 26 mmol/L (23-31); Chloride 107 mmol/L (98-107); Estimated GFR 88; Glucose 109 mg/dL (83-110); Potassium 3.3 mmol/L (3.5-5.1); Sodium 141 mmol/L (136-145)
[2023-01-04] MEDS: Carvedilol 25 MG TAB PO SCH ×2 (07:35→21:03)
[2023-01-04] MEDS: Acetaminophen/Codeine 30-300mg Tablet PO PRN (07:36)
[2023-01-04] MEDS: Lisinopril 20 MG TAB PO SCH (07:36)
[2023-01-04] MEDS: Triamterene/Hydrochlorothiazide 37.5 mg/25 mg Tablet PO SCH (07:36)
[2023-01-04] MEDS: Loratadine 10 MG TAB PO SCH (07:36)
[2023-01-04] MEDS: Scopolamine 1.5 mg/72 hour Patch TD SCH (10:22)
[2023-01-04] MEDS: Sodium Chloride 0.9% 1,000 ML IV SCH (16:25)
[2023-01-04] MEDS: Labetalol HCl 100 MG/20 ML VIAL SLOW IVP PRN ×2 (17:08→21:04)
[2023-01-04] MEDS: Acetaminophen 325 MG TAB PO PRN (21:01)
[2023-01-04] MEDS: Atorvastatin Calcium 10 MG TAB PO SCH (21:03)
[2023-01-04] MEDS: Doxazosin Mesylate 4 MG TAB PO SCH (21:04)
[2023-01-04] MEDS: Latanoprost 0.005% Ophth Soln 2.5 ml Bottle EA EYE SCH (21:15)
[2023-01-05] MEDS: Sodium Chloride 0.9% 1,000 ML IV SCH (05:46)
[2023-01-05 05:55] LABS: #Eosinphils 0.2 thou/uL (0.0-0.7); #Lymphocytes 1.7 thou/uL (1.20-3.40); #Neutrophils 5.4 thou/uL (1.40-6.50); %Basophils 0.4 % (0.0-1.0); %Eosinophils 2.7 % (0.0-10.0); %Lymphocytes 20.5 % (21.0-51.0); %Monocytes 11.7 % (0.0-10.0); %Neutrophils 64.7 % (42.0-75.0); Hemoglobin 13.5 g/dL (14.0-18.0); Mean Corpuscular HGB CONC 31.2 g/dL (32.0-36.0); Mean Corpuscular Hemoglobin 29.7 pg (27.0-31.0); Mean Corpuscular Volume 95.2 fl (78.0-98.0); Mean Platelet Volume 10.3 fL (7.4-10.4); Platelet Count 141 10x3/uL (130-400); RBC Distribution Width 11.9 % (11.5-14.5); Red Blood Cell (RBC) Count 4.56 mill/uL (4.70-6.10); White Blood Cell (WBC) Count 8.4 10x3/uL (4.8-10.8)
[2023-01-05 06:03] LABS: Anion Gap 13 mmol/L (10-20); BUN (Urea Nitrogen) 19 mg/dL (8.4-25.7); Calc. Creatinine Clearance 152 mL/min (70-130); Calcium 9.2 mg/dL (7.8-10.44); Carbon Dioxide 24 mmol/L (23-31); Chloride 108 mmol/L (98-107); Estimated GFR 95; Glucose 103 mg/dL (83-110); Potassium 3.4 mmol/L (3.5-5.1); Sodium 142 mmol/L (136-145)
[2023-01-05] MEDS: Triamterene/Hydrochlorothiazide 37.5 mg/25 mg Tablet PO SCH (08:46)
[2023-01-05] MEDS: Loratadine 10 MG TAB PO SCH (08:46)
[2023-01-05] MEDS: Lisinopril 20 MG TAB PO SCH (08:46)
[2023-01-05] MEDS: Carvedilol 25 MG TAB PO SCH (08:46)
[2023-01-05] MEDS: Scopolamine 1.5 mg/72 hour Patch TD SCH (08:47)
[2023-01-05] MEDS: Acetaminophen/Codeine 30-300mg Tablet PO PRN (08:49)
[2023-01-05 11:56] VITALS: TEMP 97.6
[2023-01-05 13:35] VITALS: BP 148/78
== END 2023-01-05 14:04 | disposition home or self-care (01) | DRG 33 ==
LOC: SURG A 01-02 05:59 → CCU 01-02 14:58 → SURG B 01-04 10:11
PROVIDERS: ADMIT Surgery; ATTEND Surgery
PROC: 00164J6 Bypass Cerebral Ventricle to Peritoneal Cavity with Synthetic Substitute, Percutaneous Endoscopic Approach (ICD-10-PCS; principal; 2023-01-02)
PROC: 6A550Z2 Pheresis of Platelets, Single (ICD-10-PCS; 2023-01-03)
DX: G91.0 Communicating hydrocephalus (principal); R51.9 Headache, unspecified; K21.9 Gastro-esophageal reflux disease without esophagitis; E78.5 Hyperlipidemia, unspecified; I10 Essential (primary) hypertension; H40.9 Unspecified glaucoma; H35.30 Unspecified macular degeneration; Z86.718 Personal history of other venous thrombosis and embolism; Z98.49 Cataract extraction status, unspecified eye; Z87.891 Personal history of nicotine dependence; Z98.52 Vasectomy status; D69.6 Thrombocytopenia, unspecified
CPT/HCPCS: 36415; 36430; 70450; 80048; 85025; 86850; 86900; 86901; C1713; J0171; J0360; J1100; J1170; J2001; J2270; J2272; J2370; J2405; J2550; J2704; J3010; J3371; J3490; J7050; P9035

== ENCOUNTER 2022-12-28 09:01 | Outpatient (CLI) | payer MEDICARE, OTHER ==
[2022-12-28 10:03] LABS: Hemoglobin 14.6 g/dL (13.5-17.5); Mean Corpuscular HGB CONC 32.2 g/dL (32.0-36.0); Mean Corpuscular Hemoglobin 29.2 pg (27.0-33.0); Mean Corpuscular Volume 90.8 fl (81.2-95.1); Mean Platelet Volume 12.4 fl (7.4-10.4); Platelet Count 156 10x3/uL (150-450); RBC Distribution Width 12.4 % (11.5-14.5); White Blood Cell (WBC) Count 5.9 10x3/uL (3.5-10.5)
[2022-12-28 10:18] LABS: INR-International Normal Ratio 1.1; PTT 22.7 sec (22.0-33.0); Prothrombin Time 11.5 sec (9.5-12.1)
[2022-12-28 10:24] LABS: Anion Gap 16 mmol/L (10-20); BUN (Urea Nitrogen) 20 mg/dL (8.4-25.7); Calc. Creatinine Clearance 0 mL/min (70-130); Calcium 9.2 mg/dL (7.8-10.44); Carbon Dioxide 24 mmol/L (23-31); Chloride 108 mmol/L (98-107); Estimated GFR 91; Glucose 100 mg/dL (83-110); Potassium 3.7 mmol/L (3.5-5.1); Sodium 144 mmol/L (136-145)
[2022-12-28 10:26] LABS: ALT (SGPT) 24 U/L (8-55); AST (SGOT) 20 U/L (5-34); Albumin 4.1 g/dL (3.4-4.8); Alkaline Phosphatase 80 U/L (40-110); Bilirubin, Direct 0.3 mg/dL (0.1-0.3); Bilirubin, Total 0.8 mg/dL (0.2-1.2); Protein, Total 6.4 g/dL (5.8-8.1)
== END 2022-12-28 09:02 | disposition home or self-care (01) ==
LOC: LABBT 09:01
PROVIDERS: ATTEND Surgery
DX: Z01.818 Encounter for other preprocedural examination (principal); G91.0 Communicating hydrocephalus
CPT/HCPCS: 80048; 80076; 85027; 85610; 85730; 93005; 93010